=== PATIENT | female | born 1990 | race African-American/Black ===

== ENCOUNTER 2021-08-26 21:58 | Emergency (ER) | payer MEDICAID ==
[~2021-08-26] VITALS: Ht 160 cm; Wt 79.0 kg
[2021-08-26 22:13] VITALS: BP 136/76
[2021-08-26] MEDS ORDERED: BACTRIM DS1 TAB PO (22:21)
== END 2021-08-26 22:34 | disposition home or self-care (01) ==
LOC: ED 21:58
DX: L03.012 Cellulitis of left finger (principal)

== ENCOUNTER 2022-05-14 01:29 | Emergency (ER) | payer MEDICAID ==
[~2022-05-14] VITALS: Ht 160 cm; Wt 75.0 kg
[~2022-05-14 01:29] MED LIST: BACTRIM DS1 TAB PO
[2022-05-14 02:02] LABS: URINE BILIRUBIN - DIPSTICK NEGATIVE (NEGATIVE); URINE BLOOD DIPSTICK SMALL (NEGATIVE); URINE COLOR YELLOW; URINE GLUCOSE - DIPSTICK NEGATIVE (NEGATIVE); URINE KETONE NEGATIVE (NEGATIVE); URINE SPECIFIC GRAVITY 1.025
[2022-05-14 02:03] LABS: URINE LEUK ESTERASE MODERATE (NEGATIVE); URINE NITRITE - DIPSTICK NEGATIVE (Negative)
[2022-05-14 02:04] LABS: URINE PROTEIN - DIPSTICK NEGATIVE (NEG-TRACE)
[2022-05-14 02:09] LABS: URINE BACTERIA MODERATE hpf; URINE EPITHELIAL CELLS MANY EPI/hpf (0-FEW)
[2022-05-14] MEDS ORDERED: AMOX/K CLAV875 M1 PO (03:22)
[2022-05-14] MEDS ORDERED: PYRIDIUM200 MG PO (03:22)
[2022-05-14] MEDS ORDERED: FLOXIN OTIC0.3 % AU (03:22)
[2022-05-14 03:30] VITALS: BP 122/78
== END 2022-05-14 03:30 | disposition home or self-care (01) ==
LOC: ED 01:29
PROVIDERS: Emergency Medicine
DX: N39.0 Urinary tract infection, site not specified (principal); H66.93 Otitis media, unspecified, bilateral

== ENCOUNTER 2022-10-27 08:25 | Emergency (ER) | payer MEDICAID ==
[~2022-10-27] VITALS: Ht 160 cm; Wt 72.5 kg
[~2022-10-27 08:25] MED LIST changes: +AMOX/K CLAV875 M1 PO; +FLOXIN OTIC0.3 % AU; +PYRIDIUM200 MG PO
[2022-10-27] MEDS ORDERED: PAXLOVID PO (11:29)
== END 2022-10-27 11:48 | disposition home or self-care (01) ==
LOC: ED 08:25
DX: U07.1 COVID-19 (principal); R05.9 Cough, unspecified

== ENCOUNTER 2022-11-22 14:07 | Emergency (ER) | payer MEDICAID ==
[~2022-11-22] VITALS: Ht 160 cm; Wt 74.8 kg
[2022-11-22] VITALS (11 sets, daily range): BP systolic 104–125; BP diastolic 62–86
[~2022-11-22 14:07] MED LIST changes: +PAXLOVID PO
[2022-11-22 16:14] LABS: URINE BILIRUBIN - DIPSTICK NEGATIVE (NEGATIVE); URINE BLOOD DIPSTICK MODERATE (NEGATIVE); URINE COLOR YELLOW; URINE GLUCOSE - DIPSTICK NEGATIVE (NEGATIVE); URINE KETONE NEGATIVE (NEGATIVE); URINE LEUK ESTERASE NEGATIVE (NEGATIVE); URINE NITRITE - DIPSTICK NEGATIVE (Negative); URINE PH 6.5 (4.5-8.0); URINE PROTEIN - DIPSTICK NEGATIVE (NEG-TRACE); URINE SPECIFIC GRAVITY 1.015
[2022-11-22 16:22] LABS: URINE RBC 0-2 RBC/hpf (0-5); URINE SQUAMOUS EPITHELIAL CELL RARE EPI/hpf (0-FEW)
[2022-11-22] MEDS ORDERED: METRONIDAZOLE500 MG PO (17:41)
== END 2022-11-22 17:55 | disposition home or self-care (01) ==
LOC: ED 14:07
PROVIDERS: Family Medicine
DX: N76.0 Acute vaginitis (principal)

== ENCOUNTER 2023-01-13 19:47 | Emergency (ER) | payer MEDICAID ==
[2023-01-13] VITALS (8 sets, daily range): BP systolic 100–124; BP diastolic 61–89
[~2023-01-13] VITALS: Ht 160 cm; Wt 66.8 kg
[~2023-01-13 19:47] MED LIST changes: +METRONIDAZOLE500 MG PO
[2023-01-13] MEDS ORDERED: PAXLOVID PO (21:54)
[2023-01-13] MEDS ORDERED: ROBITUSSIN AC10 ML PO (22:15)
== END 2023-01-13 23:50 | disposition home or self-care (01) ==
LOC: ED 19:47
DX: J06.9 Acute upper respiratory infection, unspecified (principal); Z20.822 Contact with and (suspected) exposure to COVID-19

== ENCOUNTER 2023-02-16 08:32 | Emergency (ER) | payer MEDICAID ==
[~2023-02-16] VITALS: Ht 160 cm; Wt 165.0 kg
[~2023-02-16 08:32] MED LIST changes: +ROBITUSSIN AC10 ML PO
[2023-02-16 08:59] VITALS: BP 119/76
[2023-02-16 09:00] VITALS: BP 125/66
[2023-02-16 09:15] VITALS: BP 114/76
[2023-02-16 09:30] VITALS: BP 119/85
[2023-02-16 09:45] VITALS: BP 118/73
[2023-02-16] MEDS ORDERED: AMOX/K CLAV875 M1 PO (09:55)
[2023-02-16 11:14] VITALS: BP 118/73
== END 2023-02-16 11:43 | disposition home or self-care (01) ==
LOC: ED 08:32
DX: J02.0 Streptococcal pharyngitis (principal); Z20.822 Contact with and (suspected) exposure to COVID-19